=== PATIENT | female | born 1995 | race Caucasian/White ===

== ENCOUNTER 2017-03-25 07:41 | Emergency (ER) | payer SELFPAY ==
[2017-03-25] MEDS ORDERED: LIDOCAINE 5% (700 MG) TRANSDERMAL ADH..PATCH TP ONE (09:31)
--- NOTE | 2017-03-25 10:15 | RADIOLOGY REPORT (SQ) ---
EXAM DESCRIPTION: RIBS LEFT W/PA CHEST COMPLETED DATE/TIME: 03/25/2017 10:04 am REASON FOR STUDY: rib pain COMPARISON: None. TECHNIQUE: Frontal view of the chest and additional views of the left ribs acquired. NUMBER OF VIEWS: Three view. LIMITATIONS: None. FINDINGS: FRONTAL CXR: No pneumothorax. No pleural effusion. No atelectasis or infiltrates. RIBS: No displaced rib fractures. No lytic or blastic bony lesions. OTHER: No other significant finding. IMPRESSION: NO PNEUMOTHORAX. NO DISPLACED RIB FRACTURES. COMMENT: SITE OF TRAUMA/COMPLAINT MARKED/STAMP COMPLETED: None TECHNICAL DOCUMENTATION: JOB ID: [id number] [employer]- All Rights Reserved
--- NOTE | 2017-03-25 11:24 | ER Document Report ---
ED General - General Chief Complaint: Rib Pain Stated Complaint: ABDOMINAL PAIN Time Seen by Provider: 03/25/17 09:13 TRAVEL OUTSIDE OF THE [place] IN LAST 30 DAYS: No - HPI Patient complains to provider of: Rib pain Notes: Patient coming in for evaluation of left rib pain. Patient likely 2 weeks ago underwent extensive hospitalization after an overdose of Imodium causing her to go to cardiac arrest will return to spontaneous circulation any time in the ICU patient did develop hematoma to her liver and bilateral DVTs. Patient currently is on Pradaxa states over the last 2 days productive cough now with acute left rib pain isolated to the bottom of the chest. Patient denies any fever chills nausea vomiting. Patient is in no obvious distress upon my evaluation. - Related Data Allergies/Adverse Reactions: clarithromycin [From Biaxin] Allergy (Verified 03/25/17 07:51) vomting heparin Allergy (Verified 03/25/17 07:51) Past Medical History - Social History Smoking Status: Never Smoker Chew tobacco use (# tins/day): No Frequency of alcohol use: None Drug Abuse: None Family History: None, Reviewed & Not Pertinent Endocrine Medical History: Reports: Hx Diabetes Mellitus Type 2 Renal/ Medical History: Denies: Hx Peritoneal Dialysis Past Surgical History: Reports: Hx Oral Surgery - wisdom teeth - Immunizations Immunizations up to date: Yes Hx Diphtheria, Pertussis, Tetanus Vaccination: Yes Review of Systems - Review of Systems Constitutional: No symptoms reported EENT: No symptoms reported Cardiovascular: Other - Rib pain Respiratory: No symptoms reported Gastrointestinal: No symptoms reported Genitourinary: No symptoms reported Female Genitourinary: No symptoms reported Musculoskeletal: No symptoms reported Skin: No symptoms reported Hematologic/Lymphatic: No symptoms reported Neurological/Psychological: No symptoms reported Physical Exam - Vital signs Vitals: Temp Pulse Resp BP Pulse Ox 98.2 F 115 H 14 124/80 98 03/25/17 07:51 03/25/17 07:51 03/25/17 07:51 03/25/17 07:51 03/25/17 07:51 Interpretation: Normal - General General appearance: Appears well, Alert - HEENT Head: Normocephalic, Atraumatic Eyes: Normal Pupils: PERRL - Respiratory Respiratory status: No respiratory distress Chest status: Tender - Palpation of the left chest wall very pinpoint Breath sounds: Normal Chest palpation: Normal - Cardiovascular Rhythm: Regular Heart sounds: Normal auscultation Murmur: No - Abdominal Inspection: Normal Distension: No distension Bowel sounds: Normal Tenderness: Nontender Organomegaly: No organomegaly - Back Back: Normal, Nontender - Extremities General upper extremity: Normal inspection, Nontender, Normal color, Normal ROM , Normal temperature General lower extremity: Normal inspection, Nontender, Normal color, Normal ROM , Normal temperature, Normal weight bearing. No: Slava's sign - Neurological Neuro grossly intact: Yes Cognition: Normal Orientation: AAOx4 [place] Coma Scale Eye Opening: Spontaneous [place] Coma Scale Verbal: Oriented [place] Coma Scale Motor: Obeys Commands [place] Coma Scale Total: 15 Speech: Normal Motor strength normal: LUE, RUE, LLE, RLE Sensory: Normal - Psychological Associated symptoms: Normal affect, Normal mood - Skin Skin Temperature: Warm Skin Moisture: Dry Skin Color: Normal Course - Re-evaluation Re-evalutation: 03/25/17 15:08 Chest x-ray does not show any signs of rib fracture. Bedside ultrasound also showed no signs of free fluid around the splenic region. Patient will be discharged on the Lidoderm patches. Encouraged follow-up with her outpatient evaluation - Vital Signs Vital signs: Temp Pulse Resp BP Pulse Ox 98.4 F 115 H 15 110/89 H 100 03/25/17 12:00 03/25/17 07:51 03/25/17 11:52 03/25/17 11:52 03/25/17 11:52 Discharge - Discharge Clinical Impression: Rib pain on left side Condition: Good Disposition: HOME, SELF-CARE Instructions: Anti-Inflammatory Medication ([facility]), Chest Wall Pain ([facility]), Rib Contusion ([facility]) Additional Instructions: Your evaluation today shows no critical pathology. Her chest x-ray shows no signs of rib fracture or pneumonia. Your bedside ultrasound does not show any signs of injury to her spleen. I would recommend to continue to follow-up with your doctors. Follow-up with your primary care physician as well. Return to the ER for any concerning symptoms. Continue to do light activity throughout the day to aid in your recovery. You may also take Tylenol for your pain control. Drink plenty water While resting and watching TV in the breast with the incentive spirometer at every TV commercial Prescriptions: Lidocaine [Lidoderm 5% (700 mg) Transdermal Patch] 1 patch TP DAILY #30 adh..patch
[2017-03-25 12:00] VITALS: BP 110/89
== END 2017-03-25 12:00 | disposition home or self-care (01) ==
LOC: ER 07:41
DX: R07.81 Pleurodynia (principal); R05 Cough; I82.403 Acute embolism and thrombosis of unspecified deep veins of lower extremity, bilateral; E11.9 Type 2 diabetes mellitus without complications; Z79.02 Long term (current) use of antithrombotics/antiplatelets; Z86.74 Personal history of sudden cardiac arrest; Z88.1 Allergy status to other antibiotic agents; Z88.8 Allergy status to other drugs, medicaments and biological substances
CPT/HCPCS: 99283